=== PATIENT | female | born 1935 | race Two or more races ===

== ENCOUNTER 2017-01-07 10:40 | Outpatient (CLI) | payer MEDICARE | END 2017-01-07 23:59 | disposition home or self-care (01) | LOC: WOU 10:40 | PROVIDERS: ATTEND Podiatrist Foot & Ankle Surgery | DX: M20.42 Other hammer toe(s) (acquired), left foot (principal); M20.12 Hallux valgus (acquired), left foot; L84 Corns and callosities; Z88.0 Allergy status to penicillin; E66.01 Morbid (severe) obesity due to excess calories; Z68.32 Body mass index [BMI] 32.0-32.9, adult | CPT/HCPCS: A6402; G0463 ==

== ENCOUNTER 2017-11-01 08:00 | Emergency (ER) | payer MEDICARE, MEDICAID ==
[~2017-11-01] VITALS: Ht 165.1 cm; Wt 72.6 kg
--- NOTE | 2017-11-01 08:05 | NUR ---
Recieved patient in ed bed 08, pt was bb paramedics complaining of chest pain that radiates to her back since yesetrday. Pt was given aspirin and nitro by EMS without relief. Accdg to report pt took norco 10/325mg prior to arrival. Pt is still complaining of chest pain 01/05. Pt placed on cont cardiac and pox monitoring. Skin is warm and non diaphoretic. Pt's respirations are even and unlabored. All needs are attended, side rails kept up. Will cont to monitor
[2017-11-01 08:23] LABS: BASOPHILS % (AUTO) 0.3 % (0.0-2.0); EOSINOPHILS % (AUTO) 2.9 % (0.0-6.0); HEMATOCRIT 30 % (33-45); HEMOGLOBIN 9.8 g/dL (11.5-14.8); LYMPHOCYTES # (AUTO) 2.2 /CMM (0.8-4.8); LYMPHOCYTES % (AUTO) 30.8 % (20.0-44.0); MEAN CORPUSCULAR HEMOGLOBIN 26 PG (26.0-33.0); MEAN CORPUSCULAR HGB CONC 32 g/dl (31.0-36.0); MEAN CORPUSCULAR VOLUME 82 fL (82-100); MONOCYTES # (AUTO) 0.6 /CMM (0.1-1.30); NEUTROPHILS # (AUTO) 4.1 /CMM (1.8-8.9); PLATELET COUNT (AUTO) 291 /CMM (150-450); RDW COEFFICIENT OF VARIATION 18.8 (11.5-15.0); RED BLOOD CELL COUNT(AUTO) 3.72 MIL/uL (4.0-5.2); WHITE BLOOD COUNT (AUTO) 7.2 K/uL (4.3-11.0)
[2017-11-01 08:35] LABS: CALCIUM, SERUM 8.5 mg/dL (8.5-10.1); CARBON DIOXIDE 26 mmol/L (21-32); CHLORIDE 105 mmol/L (98-107); CREATININE 0.8 mg/dL (0.6-1.3); GLUCOSE 89 mg/dL (74-106); POTASSIUM 4.2 mmol/L (3.5-5.1); SODIUM SERUM 138 mmol/L (136-145); UREA NITROGEN, BLOOD 19 mg/dL (7-18)
[2017-11-01 08:42] LABS: TROPONIN I < 0.017 ng/mL (0.00-0.056)
[2017-11-01 08:48] LABS: ALANINE AMINOTRANSFERASE 28 U/L (12-78); ALBUMIN 2.8 g/dL (3.4-5.0); ALKALINE PHOSPHATASE 78 U/L (46-116); ASPARTATE AMINOTRANSFERASE 15 U/L (15-37); B-TYPE NATRIURETIC PEPTIDE 142 PG/ML (0-125); BILIRUBIN,DIRECT 0.1 mg/dL (0.0-0.2); BILIRUBIN,TOTAL 0.5 mg/dL (0.2-1.0)
[2017-11-01 08:50] LABS: INR 1.03 (0.87-1.13)
--- NOTE | 2017-11-01 09:01 | NUR ---
Refused to have an in/cath done, dr walker notified. Pt provided a bed [facility].
--- NOTE | 2017-11-01 10:21 | NUR ---
Patient is resting comfortably in bed with eyes closed. Easily aroused. VSS
[2017-11-01 11:35] LABS: APPEARANCE,URINE Slightly Cloudy (CLEAR); BILIRUBIN,URINE Negative (NEGATIVE); BLOOD, URINE Small Ery/uL (NEGATIVE); COLOR,URINE Yellow (YELLOW); KETONES,URINE Negative (NEGATIVE); LEUKOCYTE ESTERASE ,URINE Trace (NEGATIVE); NITRITE, URINE Negative (NEGATIVE); PROTEIN,URINE Negative (NEGATIVE); UGLUCOSE Negative (NEGATIVE); UROBILINOGEN,URINE 0.2 EU/dL (0.2)
[2017-11-01 11:47] LABS: BACTERIA,URINE Many /HPF (None Seen); SQUAMOUS EPITHELIAL CELL,UR Moderate /HPF (None Seen)
--- NOTE | 2017-11-01 12:00 | NUR ---
TRANSPORT CALLED ETA 20 MINUTERS . PER ABBEY
[2017-11-01] MEDS ORDERED: IV NS 0.9% 250 ML IV ONE (13:15)
[2017-11-01] MEDS ORDERED: IOHEXOL-350 100 ML VIAL IV ONE (13:15)
[2017-11-01] MEDS ORDERED: CT SWABBABLE VALVE TRANS SET 1 EA INFUS.SET MC ONE (13:15)
--- NOTE | 2017-11-01 14:17 | NUR ---
REACTIVATED TRIP# [id number] - ETA 45-60 MIN
--- NOTE | 2017-11-01 15:09 | NUR ---
AMBUL 113 AT BEDSIDE. PT DISCHARGED TO AMBUL CO. TRANSPORTATION IN STABLE CONDITION. Written and verbal after care instructions given. Patient verbalizes understanding of instruction.
[2017-11-01 15:10] VITALS: BP 123/69
== END 2017-11-01 15:11 | disposition home or self-care (01) ==
LOC: ER 08:16
DX: R07.89 Other chest pain (principal); R45.1 Restlessness and agitation; D64.9 Anemia, unspecified; I27.20 Pulmonary hypertension, unspecified; I11.9 Hypertensive heart disease without heart failure; I70.0 Atherosclerosis of aorta; R79.89 Other specified abnormal findings of blood chemistry; E78.5 Hyperlipidemia, unspecified; K21.9 Gastro-esophageal reflux disease without esophagitis; F03.90 Unspecified dementia, unspecified severity, without behavioral disturbance, psychotic disturbance, mood disturbance, and anxiety; G62.9 Polyneuropathy, unspecified; M62.81 Muscle weakness (generalized); R26.9 Unspecified abnormalities of gait and mobility; K76.9 Liver disease, unspecified; K44.9 Diaphragmatic hernia without obstruction or gangrene; Z87.440 Personal history of urinary (tract) infections; Z88.0 Allergy status to penicillin
CPT/HCPCS: 36415; 71045; 71275; 80048; 80076; 81001; 83880; 84484 ×2; 85025; 85730; 87086; 93005; 99285; A4606; J7050; Q9967; 81000-TC; Z7610

== ENCOUNTER 2018-06-15 09:05 | Inpatient (IN) | payer MEDICARE ==
[~2018-06-15] VITALS: Ht 160 cm; Wt 85.9 kg
--- NOTE | 2018-06-15 09:10 | NUR ---
patient presented to the ER c/o of dizziness. On room air, breathing evenly and unlabored. Connected to the monitor and pulse ox. Dr. Barbosa at bedside for eval. Kept comfortable, will continue to monitor accordingly.
[2018-06-15] MEDS ORDERED: METOCLOPRAMIDE HCL 10 MG/2 ML VIAL IV ONE (09:30)
[2018-06-15] MEDS ORDERED: MECLIZINE HCL 12.5 MG TABLET PO ONE (09:30)
[2018-06-15] MEDS ORDERED: MECLIZINE HCL 25 MG TABLET ONE (09:36)
[2018-06-15] MEDS ORDERED: METOCLOPRAMIDE HCL 10 MG/2 ML VIAL ONE (09:37)
[2018-06-15 09:46] LABS: BASOPHILS % (AUTO) 0.4 % (0.0-2.0); EOSINOPHILS % (AUTO) 0.9 % (0.0-6.0); HEMATOCRIT 37 % (33-45); HEMOGLOBIN 12.1 g/dL (11.5-14.8); LYMPHOCYTES # (AUTO) 1.3 /CMM (0.8-4.8); LYMPHOCYTES % (AUTO) 20.2 % (20.0-44.0); MEAN CORPUSCULAR HGB CONC 33 g/dl (31.0-36.0); MEAN CORPUSCULAR VOLUME 80 fL (82-100); MONOCYTES # (AUTO) 0.5 /CMM (0.1-1.30); MONOCYTES % (AUTO) 8.3 % (2.0-12.0); NEUTROPHILS # (AUTO) 4.6 /CMM (1.8-8.9); NEUTROPHILS % (AUTO) 70.2 % (43.0-81.0); PLATELET COUNT (AUTO) 201 /CMM (150-450); RED BLOOD CELL COUNT(AUTO) 4.59 MIL/uL (4.0-5.2); WHITE BLOOD COUNT (AUTO) 6.6 K/uL (4.3-11.0)
[2018-06-15 09:53] LABS: CALCIUM, SERUM 9.4 mg/dL (8.5-10.1); CARBON DIOXIDE 22 mmol/L (21-32); CHLORIDE 104 mmol/L (98-107); CREATININE 0.8 mg/dL (0.6-1.3); GLUCOSE 96 mg/dL (74-106); POTASSIUM 3.9 mmol/L (3.5-5.1); SODIUM SERUM 138 mmol/L (136-145); UREA NITROGEN, BLOOD 20 mg/dL (7-18)
[2018-06-15 09:59] LABS: ALANINE AMINOTRANSFERASE 21 U/L (12-78); ALBUMIN 3.7 g/dL (3.4-5.0); ALKALINE PHOSPHATASE 72 U/L (46-116); ASPARTATE AMINOTRANSFERASE 20 U/L (15-37); BILIRUBIN,DIRECT 0.1 mg/dL (0.0-0.2); BILIRUBIN,TOTAL 0.5 mg/dL (0.2-1.0); TOTAL PROTEIN, SERUM 7.9 g/dL (6.4-8.2)
--- NOTE | 2018-06-15 10:00 | NUR ---
pt wheeled via [employer] going for CT scan
--- NOTE | 2018-06-15 10:10 | NUR ---
pt came back from CT.
--- NOTE | 2018-06-15 11:02 | NUR ---
urine collected and sent to lab.
[2018-06-15 11:13] LABS: APPEARANCE,URINE Clear (CLEAR); BILIRUBIN,URINE Negative (NEGATIVE); BLOOD, URINE Trace-intact Ery/uL (NEGATIVE); COLOR,URINE Yellow (YELLOW); KETONES,URINE Negative (NEGATIVE); LEUKOCYTE ESTERASE ,URINE Trace (NEGATIVE); NITRITE, URINE Negative (NEGATIVE); PROTEIN,URINE Negative (NEGATIVE); UGLUCOSE Negative (NEGATIVE); UROBILINOGEN,URINE 0.2 EU/dL (0.2)
[2018-06-15 11:20] LABS: BACTERIA,URINE None seen /HPF (None Seen); SQUAMOUS EPITHELIAL CELL,UR Few /HPF (None Seen)
[2018-06-15] MEDS ORDERED: DIAZEPAM 5 MG TABLET ONE (11:30)
[2018-06-15] MEDS ORDERED: DIAZEPAM 5 MG/ML 2 ML DISP.SYRIN IV ONE (11:30)
--- NOTE | 2018-06-15 11:51 | NUR ---
DR.BAHADORI STROUD
[2018-06-15] MEDS ORDERED: DIAZEPAM 10 MG TABLET PO ONE (12:00)
--- NOTE | 2018-06-15 12:07 | NUR ---
CALLED NURSING SUP. FOR MS BED
--- NOTE | 2018-06-15 12:17 | NUR ---
CALLED NURSING SUP. FOR MS BED
[2018-06-15] MEDS ORDERED: ASPIRIN 81 MG TAB.CHEW PO ONE (12:30)
--- NOTE | 2018-06-15 12:31 | NUR ---
MS 309-2, CASSIE IS THE NURSE
[2018-06-15] MEDS ORDERED: ASPIRIN 81 MG TAB.CHEW ONE (13:05)
--- NOTE | 2018-06-15 13:15 | NUR ---
DIRECTOR VALIDATION NOTES Patient admitted from Emergency Department. 82yo female, Yakut speaking, admitted d/t vertigo. A/O x 4. No acute respiratory distress. Breathing even and unlabored with clear lung sounds. VS stable. BP-123/57 HR-81 RR-18 Oral Temp-97.8F and saturation on RA at 100%. Skin assessment performed, skin intact. IV access on left wrist 22guage, clean, dry and intact. DVT pumps placed. Belongings checked. Patient refused pain. Dr. Cole aware of new admit and medications. Daughter at bedside. Call light within reach. Safety precautions and monitoring placed. All patients needs met at this time. Will continue to monitor.
--- NOTE | 2018-06-15 13:28 | NUR ---
transferred patient to [facility] in no apparent distress noted. Mary Beth at bedside and assumed care.
[2018-06-15 13:57] VITALS: BP 123/57
--- NOTE | 2018-06-15 15:57 | NUR ---
TEXTED FOR MRI APPROVAL.
[2018-06-15 16:00] VITALS: BP 110/46
[2018-06-15] MEDS ORDERED: PREG50CA PO (17:53)
[2018-06-15] MEDS ORDERED: MEGE400O2 PO (17:53)
[2018-06-15] MEDS ORDERED: SOLI5TAB2 PO (17:53)
[2018-06-15] MEDS ORDERED: MEMA28CA PO (17:53)
[2018-06-15] MEDS ORDERED: ACET-73 PO (17:53)
[2018-06-15] MEDS ORDERED: OMEP20CA10 PO (17:53)
[2018-06-15] MEDS ORDERED: MELA1TAB15 PO (17:53)
[2018-06-15] MEDS ORDERED: OMEG1CAP55 PO (17:53)
[2018-06-15] MEDS ORDERED: LACT10SO29 PO (17:53)
[2018-06-15] MEDS ORDERED: ERGO500040 PO (17:53)
[2018-06-15] MEDS ORDERED: NITR0.4T48 SL (17:53)
[2018-06-15] MEDS ORDERED: RIVA1PAT3 TD (17:53)
[2018-06-15] MEDS ORDERED: MELO-107 PO (17:53)
[2018-06-15] MEDS ORDERED: ALEN70TA6 PO (17:53)
[2018-06-15] MEDS ORDERED: ESCI5TAB PO (17:53)
[2018-06-15] MEDS ORDERED: FOLI0.8T2 PO (17:53)
[2018-06-15] MEDS ORDERED: ATOR20TA PO (17:53)
[2018-06-15] MEDS: IV NS 0.9% 1,000 ML IV PRN (18:22)
[2018-06-15] MEDS ORDERED: MECLIZINE HCL 25 MG TABLET PO PRN (18:30)
[2018-06-15] MEDS ORDERED: ONDANSETRON HCL/PF 4 MG/2 ML VIAL IVP PRN (18:30)
--- NOTE | 2018-06-15 18:35 | NUR ---
RN CLOSING NOTES Patient comfortable in bed. A/O x 4, Tajik speaking. VS stable. No acute distress. IV site patent, clean, dry and intact on left wrist. IVF NS running at 75ml/hr. MRI consent forms signed. Call lights within reach. Daughter at bedside. Patient refuses pain at this time. Endorsed plan of care to night nurse.
--- NOTE | 2018-06-15 19:36 | NUR ---
RN NOTES Per Patient request, use diapers d/t complaints of dizziness and vertigo when standing up. Endorsed to night nurse.
--- NOTE | 2018-06-15 19:40 | NUR ---
RN Notes Received patient awake sitting in the wheel chair for MRI of the brain with daughter at bedside. Patient alert and oriented x3, denies dizziness, pain, nausea and vomiting at this time. IV access on left wrist intact. Transported to MRI in stable condition accompanied by her daughter.
[2018-06-15 20:00] VITALS: BP 113/67
--- NOTE | 2018-06-15 20:30 | NUR ---
RN Notes Patient came back from MRI, denies dizziness, pain, nausea and vomiting. IV access out of site, inserted new peripheral IV on left wrist with gauge 24 with good blood return. Resting comfortably in bed. Safety measures and fall precaution in place with call light within reach. Will continue to monitor patient.
[2018-06-15] MEDS: ENOXAPARIN SODIUM 30 MG/0.3 ML DISP.SYRIN SQ SCH (20:42)
[2018-06-15 22:00] VITALS: BP 113/67
--- NOTE | 2018-06-16 06:48 | NUR ---
RN Notes Patient sleep well overnight, vital signs stable, afebrile. Denies dizziness, pain, nausea and vomiting. On room air and tolerated well. No significant change in condition noted. Fall precaution observed. Kept patient clean and dry. Will endorse to morning RN for continuity of care.
--- NOTE | 2018-06-16 08:00 | NUR ---
MS RN AM NOTES Patient Romanian speaking,A/O x 4. No acute respiratory distress. Breathing even and unlabored with clear lung sounds. VS stable. IV access on left wrist 22gauge, clean, dry and intact. DVT pumps placed. Patient C/O back pain.Tylenol 650 mg po given.Awaiting for Dr. oCle.Call light within reach. Safety precautions and monitoring placed.Ambulates with the use of FWW. Patients needs met at this time. Will continue to monitor.
[2018-06-16 08:11] LABS: CALCIUM, SERUM 8.5 mg/dL (8.5-10.1); CARBON DIOXIDE 22 mmol/L (21-32); CHLORIDE 108 mmol/L (98-107); CREATININE 0.8 mg/dL (0.6-1.3); GLUCOSE 95 mg/dL (74-106); POTASSIUM 3.8 mmol/L (3.5-5.1); SODIUM SERUM 142 mmol/L (136-145); UREA NITROGEN, BLOOD 19 mg/dL (7-18)
[2018-06-16 08:16] LABS: BASOPHILS % (AUTO) 0.4 % (0.0-2.0); HEMATOCRIT 32 % (33-45); HEMOGLOBIN 10.8 g/dL (11.5-14.8); LYMPHOCYTES # (AUTO) 2.3 /CMM (0.8-4.8); LYMPHOCYTES % (AUTO) 41.2 % (20.0-44.0); MEAN CORPUSCULAR HGB CONC 33 g/dl (31.0-36.0); MEAN CORPUSCULAR VOLUME 80 fL (82-100); MONOCYTES # (AUTO) 0.5 /CMM (0.1-1.30); MONOCYTES % (AUTO) 8.4 % (2.0-12.0); NEUTROPHILS # (AUTO) 2.6 /CMM (1.8-8.9); PLATELET COUNT (AUTO) 221 /CMM (150-450); RED BLOOD CELL COUNT(AUTO) 4.02 MIL/uL (4.0-5.2); WHITE BLOOD COUNT (AUTO) 5.5 K/uL (4.3-11.0)
[2018-06-16] MEDS: ASPIRIN 81 MG TAB.CHEW PO SCH (08:44)
[2018-06-16] MEDS: PANTOPRAZOLE 40 MG TABLET.DR PO SCH (08:44)
[2018-06-16] MEDS: LORAZEPAM 0.5 MG TABLET PO PRN ×2 (08:53→16:16)
[2018-06-16] MEDS: ACETAMINOPHEN 325 MG TABLET PO PRN ×2 (08:53→15:47)
[2018-06-16 09:00] VITALS: BP 126/84
[2018-06-16] MEDS: IV NS 0.9% 1,000 ML IV PRN (13:40)
[2018-06-16] MEDS ORDERED: LEVOFLOXACIN (500MG) 500 MG TABLET PO SCH (15:00)
[2018-06-16 16:00] VITALS: BP 119/82
[2018-06-16] MEDS: MEMANTINE HCL 5 MG TABLET PO SCH (16:16)
[2018-06-16] MEDS ORDERED: Medication Not On Formulary EA (Omega-3 Acid Ethyl Esters (Lovaza) 2 CAP) PO SCH (17:00)
--- NOTE | 2018-06-16 18:00 | NUR ---
PT SEEN BY DR KOTHARI (NEURO) WITH NO NEW ORDER.PT CALMLY WATCHING TV LYING IJ BED WITH NO C/O PAIN OR DISTRESS.CALL LIGHT WITHIN REACH.
--- NOTE | 2018-06-16 19:50 | NUR ---
RN OPENING NOTES RECEIVED REPORT FROM DAYSHIFT RN TIM. FOUND Pt AWAKE, RESTING IN BED COMFORTABLY. NO S/S OF ACUTE DISTRESS OR SOB NOTED. RESPIRATIONS EVEN AND UNLABORED. Pt IS A/OX4, FARSI SPEAKING, VERBAL, ABLE TO MAKE NEEDS KNOWN. NO C/O PAIN AT THIS TIME. Pt IS AMB WITH ASSIST WITH FWW. IV ACCESS ON LW #24G, SL. SAFETY MEASURES IN PLACE. BED LOW, LOCKED, HOB ELEVATED, SIDE RAILS UP, CALL LIGHT AND BEDSIDE TABLE WITHIN REACH. WILL CONTINUE TO MONITOR Pt's CONDITION AND SAFETY THROUGHOUT THE NIGHT.
[2018-06-16 20:00] VITALS: BP 138/74
[2018-06-16] MEDS: ENOXAPARIN SODIUM 30 MG/0.3 ML DISP.SYRIN SQ SCH (21:00)
--- NOTE | 2018-06-16 21:59 | NUR ---
NAYELI NOTES Pt REFUSED LOVENOX. Addendum: 06/17/18 at 0335 by JEAN MARIE HANKINS RN HAD TO WASTE MED. Pt WAS AFRAID OF THE NEEDLE. WILL SEE IF MED CAN BE CHANGED TO PO INSTEAD.
[2018-06-16] MEDS ORDERED: PYRIDOXINE HCL PO SCH (22:00)
[2018-06-16] MEDS ORDERED: TRAZODONE 50 MG TABLET PO SCH (22:00)
[2018-06-16] MEDS ORDERED: MELATONIN PO SCH (22:00)
--- NOTE | 2018-06-17 07:10 | NUR ---
RN CLOSING NOTES NO SIGNIFICANT CHANGES IN Pt's CONDITION DURING THE NIGHT. Pt REMAINS STABLE PER BASELINE. NO S/S OF ACUTE DISTRESS OR SOB NOTED. Pt RESTING IN BED. RESPIRATIONS EVEN AND UNLABORED. ALL NEEDS MET AND ATTENDED TO. SAFETY MEASURES IN PLACE. WILL ENDORSE TO DAYSHIFT RN FOR Pt's DAMION.
--- NOTE | 2018-06-17 07:47 | NUR ---
MS RN OPENING NOTES RECEIVED PT LAYING IN BED WITH HOB ELEVATED. PT IS A/O X3, AFEBRILE. RESPIRATIONS ARE EVEN AND UNLABORED, NOT IN ANY ACUTE DISTRESS NOTED. NO C/O PAIN, SOB, N/V AT THIS TIME. IV SITE TO L WRIST INTACT, NO INFILTRATION NOTED. DRESSING KEPT CLEAN AND DRY. SAFETY MEASURES ARE IN PLACE. INSTRUCTED PT TO USE CALL LIGHT WHEN ASSISTANCE IS NEEDED, CALL LIGHT IS LEFT WITHIN REACH. WILL MONITOR THROUGHOUT SHIFT FOR CONTINUITY OF CARE.
[2018-06-17 08:00] VITALS: BP 132/80
[2018-06-17] MEDS: ASPIRIN 81 MG TAB.CHEW PO SCH (08:11)
[2018-06-17] MEDS: PANTOPRAZOLE 40 MG TABLET.DR PO SCH (08:11)
[2018-06-17] MEDS: MEMANTINE HCL 5 MG TABLET PO SCH (08:12)
[2018-06-17] MEDS: ACETAMINOPHEN 325 MG TABLET PO PRN (09:00)
[2018-06-17] MEDS ORDERED: RIVASTIGMINE TARTRATE 4.6 MG PATCH.TD24 TD SCH ×2 (09:00)
[2018-06-17] MEDS ORDERED: PREGABALIN 25 MG CAPSULE PO SCH (09:00)
[2018-06-17] MEDS: LORAZEPAM 0.5 MG TABLET PO PRN (09:00)
[2018-06-17] MEDS ORDERED: VIT B CMPLX 3/FA/VIT C/BIOTIN 1 TAB TABLET PO SCH (09:00)
[2018-06-17] MEDS ORDERED: ESCITALOPRAM OXALATE (10 MG) 10 MG TABLET PO SCH (09:00)
[2018-06-17] MEDS ORDERED: MELOXICAM 7.5 MG TABLET PO SCH (09:00)
[2018-06-17] MEDS ORDERED: MEGESTROL ACETATE SUSP 400 MG/10 ML UDC PO SCH (09:00)
--- NOTE | 2018-06-17 12:04 | NUR ---
MS RN NOTES-- PT IS NOT IN ANY APPARENT DISTRESS NOTED. ABLE TO MAKE NEEDS KNOWN. NEED RENDERED.
[2018-06-17] MEDS ORDERED: LEVOFLOXACIN (250MG) 250 MG TABLET PO SCH (15:00)
--- NOTE | 2018-06-17 15:00 | NUR ---
MS AUTO HAULER NOTE PT DISCHARGED TO HOME VIA [facility] IN STABLE CONDITION. 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 CLEARED BY PT TO DISCHARGE HOME IN SAFE CONDITION. PT IS A/O X3-4, AFEBRILE. RESPIRATIONS ARE EVEN AND UNLABORED, NOT IN ANY ACUTE DISTRESS NOTED. EXPLAINED DISCHARGE PAPERWORK TO PT WITH VERBAL AND WRITTEN UNDERSTANDING, ALSO EXPLAINED DISCHARGE PAPERWORK TO DTR WITH VERBAL UNDERSTANDING. FAXED PRESCRIPTIONS TO [facility] PER DTR. IV ACCESS REMOVED, APPLIED PRESSURE AND TOLERATED WELL. ID BAND REMOVED. PHOTO TO ZACH STEPEHN TAKEN AND PLACED IN CHART. ALL BELONGINGS SENT WITH PT. 1 STAFF ASSISTANCE ACCOMPANIED PT TO [facility] IN STABLE CONDITION. PT STATED "THANK YOU."
[2018-06-19] MEDS ORDERED: ERGOCALCIFEROL (VITAMIN D 2) 50,000 UNIT CAPSULE PO SCH (09:00)
== END 2018-06-17 15:00 | disposition home or self-care (01) | DRG 153 ==
LOC: ER 09:05 → MED 12:46
PROVIDERS: ADMIT Legal Medicine; ATTEND Legal Medicine
DX: H70.90 Unspecified mastoiditis, unspecified ear (principal); E86.0 Dehydration; K21.9 Gastro-esophageal reflux disease without esophagitis; E78.5 Hyperlipidemia, unspecified; F03.90 Unspecified dementia, unspecified severity, without behavioral disturbance, psychotic disturbance, mood disturbance, and anxiety; R26.9 Unspecified abnormalities of gait and mobility; Z87.440 Personal history of urinary (tract) infections; M81.0 Age-related osteoporosis without current pathological fracture; Z96.652 Presence of left artificial knee joint; M19.90 Unspecified osteoarthritis, unspecified site; H53.2 Diplopia; G89.29 Other chronic pain; Z88.0 Allergy status to penicillin; F32.9 Major depressive disorder, single episode, unspecified; F41.9 Anxiety disorder, unspecified
CPT/HCPCS: 36415; 70450-TC; 70551-TC; 80048-TC; 80076-TC; 81000-TC; 84484-TC; 85025-TC; 87081-TC; G0378; J1650; J2765; J7030; J8597